=== PATIENT | male | born 1990 | race Caucasian/White ===

== ENCOUNTER 2020-07-17 08:28 | Emergency (ER) | payer SELFPAY ==
[~2020-07-17] VITALS: Ht 175.3 cm; Wt 75.7 kg
[2020-07-17 08:40] VITALS: Ht 175.3 cm; Wt 75.7 kg
[2020-07-17 10:40] LABS: BASOPHIL % 0.5 % (0.2-1.5); PLATELET COUNT 259 x10^3mcL (152-348); RED CELL DISTRIBUTION WIDTH 12.8 % (12.1-16.2)
[2020-07-17 11:12] LABS: CALCIUM 9.6 mg/dL (8.5-10.1); CARBON DIOXIDE 27.6 mmol/L (21-32); CHLORIDE SERUM 103 mmol/L (98-107); CREATININE SERUM 0.6 mg/dL (0.7-1.3); GFR1 > 60 mL/min; GLUCOSE SERUM 102 mg/dL (74-106); POTASSIUM SERUM 4.3 mmol/L (3.5-5.1); SODIUM SERUM 134 mmol/L (136-145)
[2020-07-17 11:17] LABS: ALBUMIN 3.6 g/dL (3.4-5.0); ALKALINE PHOSPHATASE 101 U/L (46-116); ALT/SGPT 50 U/L (16-63); AST/SGOT 25 U/L (15-37); BILIRUBIN TOTAL 0.6 mg/dL (0.20-1.00); TOTAL PROTEIN, SERUM 6.8 g/dL (6.4-8.2)
[2020-07-17 12:16] LABS: UA SPECIFIC GRAVITY 1.015 (1.005-1.035); microscopic required? YES; urine erythrocyte 2+ (NEGATIVE)
[2020-07-17 13:48] VITALS: BP 120/76
== END 2020-07-17 13:48 | disposition home or self-care (01) ==
LOC: ED 08:28
PROVIDERS: Emergency Medicine
DX: N20.0 Calculus of kidney (principal); N39.0 Urinary tract infection, site not specified
CPT/HCPCS: J0696; J1885; J2270; J2405